=== PATIENT | male | born 1955 | race Asian ===

== ENCOUNTER 2019-07-13 18:49 | Emergency (ER) | payer BC ==
[~2019-07-13] VITALS: Ht 172.7 cm; Wt 68.0 kg
[2019-07-13 18:52] VITALS: BP_SYST 102
[2019-07-13] MEDS ORDERED: NACL 0.9% 1,000 ML IV ONE (19:09)
[2019-07-13] MEDS ORDERED: ALBUTEROL SULFATE 0.083% 2.5 MG/3 ML VIAL.NEB IH ONE (19:15)
[2019-07-13] MEDS ORDERED: IPRATROPIUM BROM 0.5 MG/2.5 ML VIAL.NEB (ATROVENT) IH ONE (19:15)
[2019-07-13] MEDS ORDERED: methylPREDNISolone SOD SUCC/PF 62.5 MG/ML VIAL IVP ONE (19:15)
[2019-07-13 19:51] LABS: BASOPHILS % (AUTO) 0.1 % (0.0-2.0); HEMATOCRIT 32.8 % (36-54); HEMOGLOBIN 11.1 g/dL (14.0-18.0); LYMPHOCYTES % (AUTO) 9.4 % (20.5-51.5); MEAN CORPUSCULAR HEMOGLOBIN 35 pg (27-31); MEAN CORPUSCULAR HGB CONC 34 % (32-36); MEAN CORPUSCULAR VOLUME 103 fL (79.0-98.0); MONOCYTES # (AUTO) 0.9 K/uL (0.0-1.0); NEUTROPHILS # (AUTO) 9.1 K/uL (1.8-7.7); NEUTROPHILS % (AUTO) 82.5 % (40.0-70.0); PLATELET COUNT (AUTO) 175 K/uL (130-430); RED BLOOD CELL COUNT(AUTO) 3.19 MIL/uL (4.2-6.2); RED CELL DISTRIBUTION WIDTH 13.4 % (9.0-15.0); WHITE BLOOD COUNT (AUTO) 11.1 K/uL (4.8-10.8)
[2019-07-13 19:59] LABS: CALCIUM 8.4 mg/dL (8.4-11.0); CREATININE 1.74 mg/dL (0.55-1.30); POTASSIUM 4.8 mmol/L (3.5-5.1)
[2019-07-13 20:02] LABS: PROTHROMBIN TIME 10.7 SECS (9.5-12.5)
[2019-07-13 20:10] LABS: ALBUMIN 3.7 g/dL (3.4-4.8); TOTAL BILIRUBIN 0.9 mg/dL (0.0-1.0)
[2019-07-13 20:41] LABS: CKMB RELATIVE INDEX 3.5 (0.0-2.9); CREATINE KINASE MB 13.1 ng/mL (0-3.6)
[2019-07-13] MEDS ORDERED: HEPARIN SODIUM,PORCINE 5000 UNITS/ML VIAL ONE (20:45)
[2019-07-13] MEDS ORDERED: ASPIRIN 325 MG TABLET PO ONE (20:45)
[2019-07-13] MEDS ORDERED: cefTRIAXone 1 GM in D5W 50 ML IV ONE (20:45)
[2019-07-13] MEDS ORDERED: HEPARIN SODIUM,PORCINE 5000 UNITS/ML VIAL IVP ONE (20:45)
[2019-07-13] MEDS ORDERED: AZITHROMYCIN 250 MG TABLET PO ONE (20:45)
[2019-07-13] MEDS ORDERED: HEPARIN SODIUM, PORCINE 10,000 UNITS/ 10 ML VIAL ONE (20:46)
[2019-07-13] MEDS ORDERED: ASPIRIN 325 MG TABLET ONE (20:47)
[2019-07-13 20:53] VITALS: BP_SYST 90
[2019-07-13] MEDS ORDERED: AZITHROMYCIN 250 MG TABLET ONE (20:57)
[2019-07-13] MEDS ORDERED: cefTRIAXone 1 GM IVPB PREMIX 50 ML IV ONE (20:57)
== END 2019-07-13 20:53 | disposition short-term general hospital (02) ==
LOC: SED 18:49
DX: I21.3 ST elevation (STEMI) myocardial infarction of unspecified site (principal); E11.9 Type 2 diabetes mellitus without complications; I10 Essential (primary) hypertension
CPT/HCPCS: 36415; 71045; 80053; 82150; 82550; 82553; 83605; 83690; 83880; 84484; 85025; 85610; 85730; 87040; 94640; 96365; 96375; 99291; J0696; J1644; J2930; J7030; J7613; Q0144